=== PATIENT | female | born 1950 | race Caucasian/White ===

== ENCOUNTER → 2019-04-18 | Outpatient (CLI) | payer MEDICARE, OTHER, SELFPAY ==
--- NOTE | 2019-04-18 09:15 | RAD_ITS ---
STUDY: X-RAY CHEST REASON FOR EXAM: Female, 68 years old. No chest complaints TECHNIQUE: PA and lateral views of the chest. COMPARISON: 09/09/2014 FINDINGS: The lungs are clear and expanded. There is no demonstrated pleural abnormality. Normal size heart. Normal mediastinum and yaa. Normal visualized pulmonary arteries. Normal visualized aortic arch and descending thoracic aorta. Normal visualized thoracic spine. 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 There is no demonstrated abnormality of the visualized soft tissue structures of the upper abdomen. RAD/Chest PA and Lateral IMPRESSION: Normal x-ray examination of the chest. Electronically Signed: Logan Smith, at 10:17 EDT Tel , Service support ,
[2019-04-21 03:06] LABS: QNTFERON TB Mitogen Value > 10.00 IU/mL (.); QNTFERON TB Nil Value 0.79 IU/mL (.); QNTFERON TB1+ Ag Value 0.33 IU/mL (.); QNTFERON TB2+ Ag Value 0.37 IU/mL (.)
[2019-04-23 08:19] LABS: QNTIFERON TB Positive Criteria Negative (Negative)
== END | disposition home or self-care (01) ==
LOC: MTLAB 09:02
PROVIDERS: Family Provider Family Medicine; PCP Family Medicine; Referring Provider Internal Medicine Rheumatology; Visit Provider Internal Medicine Rheumatology
DX: M05.70 Rheumatoid arthritis with rheumatoid factor of unspecified site without organ or systems involvement (principal); Z79.899 Other long term (current) drug therapy; I10 Essential (primary) hypertension; M47.892 Other spondylosis, cervical region
CPT/HCPCS: 36415; 71046; 86480

== ENCOUNTER 2023-11-28 08:05 | Outpatient (CLI) | payer MEDICARE, SELFPAY ==
[2023-11-28 09:04] LABS: Anion Gap 7 (5-15); BUN 12 mg/dL (7-18); Calcium,Total 10.7 mg/dL (8.5-10.1); Chloride 106 mmol/L (98-107); EST Glomerular Filtration Rate 58 mL/min (>60); Est Glom Filt Rate - Afr Amer 70 mL/min (>60); Glucose 119 mg/dL (74-106); Potassium 3.2 mmol/L (3.5-5.1); Sodium Level 140 mmol/L (136-145)
[2023-11-28 09:05] LABS: Hematocrit 31.9 % (37-47); Hemoglobin 9.8 g/dL (12.0-15.0); Mean Corp Hgb Conc 30.7 g/dL (32-36); Mean Corpuscular Hgb 27.3 pg (27.0-32.0); Mean Corpuscular Volume 88.9 fL (81-99); Mean Platelet Vol. 11.7 fl (6.2-12.0); Platelet Count 142 K/mm3 (150-450); RBC Distribution Width CV 13.3 % (11.6-14.6); RBC Distribution Width SD 43.8 fl (35.1-43.9); Red Blood Count 3.59 M/mm3 (4.2-5.4); White Blood Count 4.2 K/mm3 (4.4-11.0)
[2023-11-28 09:15] LABS: Erythrocyte Sedimentation Rate 25 mm/hr (0-30)
[2023-11-28 10:13] LABS: Vancomycin, Trough Level 39.7 ug/mL (5.0-15.0)
== END 2023-11-28 08:06 | disposition home or self-care (01) ==
PROVIDERS: PCP Family Medicine; Referring Provider Internal Medicine Infectious Disease; Visit Provider Internal Medicine Infectious Disease
DX: L03.90 Cellulitis, unspecified (principal)
CPT/HCPCS: 36592; 80048; 80202; 85027; 85652; A4216

== ENCOUNTER 2023-11-30 14:49 | Outpatient (CLI) | payer MEDICARE, SELFPAY ==
[2023-11-30 15:34] LABS: Anion Gap 7 (5-15); BUN 15 mg/dL (7-18); BUN/Creat Ratio 12.6 RATIO (10-20); Calcium,Total 10.7 mg/dL (8.5-10.1); Chloride 106 mmol/L (98-107); Creatinine, Serum 1.19 mg/dL (0.55-1.02); EST Glomerular Filtration Rate 47 mL/min (>60); Est Glom Filt Rate - Afr Amer 57 mL/min (>60); Glucose 122 mg/dL (74-106); Potassium 3.1 mmol/L (3.5-5.1); Sodium Level 140 mmol/L (136-145)
[2023-11-30 16:05] LABS: Vancomycin, Random Level 31.2 ug/mL (0.0-15.0)
== END 2023-11-30 14:50 | disposition home or self-care (01) ==
LOC: MEDOUTP 14:49
PROVIDERS: PCP Family Medicine; Referring Provider Internal Medicine Infectious Disease; Visit Provider Internal Medicine Infectious Disease
DX: T84.53XA Infection and inflammatory reaction due to internal right knee prosthesis, initial encounter (principal)
CPT/HCPCS: 36592; 80048; 80202; A4216

== ENCOUNTER 2023-12-01 13:34 | Outpatient (CLI) | payer MEDICARE, SELFPAY ==
[2023-12-01 14:42] LABS: Vancomycin, Random Level 22.4 ug/mL (0.0-15.0)
[2023-12-01 14:49] LABS: Anion Gap 7 (5-15); BUN 16 mg/dL (7-18); BUN/Creat Ratio 13.8 RATIO (10-20); Calcium,Total 10.3 mg/dL (8.5-10.1); Chloride 106 mmol/L (98-107); Creatinine, Serum 1.16 mg/dL (0.55-1.02); EST Glomerular Filtration Rate 49 mL/min (>60); Est Glom Filt Rate - Afr Amer 59 mL/min (>60); Glucose 134 mg/dL (74-106); Sodium Level 139 mmol/L (136-145)
== END 2023-12-01 13:35 | disposition home or self-care (01) ==
LOC: MEDOUTP 13:34
PROVIDERS: PCP Family Medicine; Referring Provider Internal Medicine Infectious Disease; Visit Provider Internal Medicine Infectious Disease
DX: T84.53XA Infection and inflammatory reaction due to internal right knee prosthesis, initial encounter (principal); Z45.2 Encounter for adjustment and management of vascular access device
CPT/HCPCS: 36592; 80048; 80202; A4216

== ENCOUNTER 2023-12-05 08:00 | Outpatient (CLI) | payer MEDICARE, SELFPAY ==
[2023-12-05 08:43] LABS: Hematocrit 30.8 % (37-47); Hemoglobin 9.8 g/dL (12.0-15.0); Mean Corp Hgb Conc 31.8 g/dL (32-36); Mean Corpuscular Hgb 27.6 pg (27.0-32.0); Mean Corpuscular Volume 86.8 fL (81-99); Mean Platelet Vol. 11.4 fl (6.2-12.0); Platelet Count 141 K/mm3 (150-450); RBC Distribution Width CV 13.1 % (11.6-14.6); RBC Distribution Width SD 41.8 fl (35.1-43.9); Red Blood Count 3.55 M/mm3 (4.2-5.4); White Blood Count 5.4 K/mm3 (4.4-11.0)
[2023-12-05 08:53] LABS: Erythrocyte Sedimentation Rate 48 mm/hr (0-30)
[2023-12-05 09:03] LABS: Anion Gap 7 (5-15); BUN 11 mg/dL (7-18); BUN/Creat Ratio 11.2 RATIO (10-20); Calcium,Total 10.1 mg/dL (8.5-10.1); Chloride 102 mmol/L (98-107); Creatinine, Serum 0.99 mg/dL (0.55-1.02); EST Glomerular Filtration Rate 59 mL/min (>60); Est Glom Filt Rate - Afr Amer 71 mL/min (>60); Glucose 124 mg/dL (74-106); Potassium 2.8 mmol/L (3.5-5.1); Sodium Level 136 mmol/L (136-145)
[2023-12-05 09:04] LABS: Vancomycin, Trough Level 20.4 ug/mL (5.0-15.0)
== END 2023-12-05 08:01 | disposition home or self-care (01) ==
LOC: MEDOUTP 08:01
PROVIDERS: PCP Family Medicine; Referring Provider Internal Medicine Infectious Disease; Visit Provider Internal Medicine Infectious Disease
DX: T84.50XA Infection and inflammatory reaction due to unspecified internal joint prosthesis, initial encounter (principal)
CPT/HCPCS: 36592; 80048; 80202; 85027; 85652; A4216

== ENCOUNTER 2023-12-12 08:07 | Outpatient (CLI) | payer MEDICARE, SELFPAY ==
[2023-12-12 09:00] LABS: Erythrocyte Sedimentation Rate 54 mm/hr (0-30)
[2023-12-12 09:03] LABS: Hematocrit 30.3 % (37-47); Hemoglobin 9.6 g/dL (12.0-15.0); Mean Corp Hgb Conc 31.7 g/dL (32-36); Mean Corpuscular Volume 85.1 fL (81-99); Mean Platelet Vol. 11.5 fl (6.2-12.0); Platelet Count 164 K/mm3 (150-450); RBC Distribution Width CV 13.3 % (11.6-14.6); RBC Distribution Width SD 41.8 fl (35.1-43.9); Red Blood Count 3.56 M/mm3 (4.2-5.4); White Blood Count 4.2 K/mm3 (4.4-11.0)
[2023-12-12 09:17] LABS: Vancomycin, Trough Level 20.7 ug/mL (5.0-15.0)
[2023-12-12 09:41] LABS: Anion Gap 6 (5-15); BUN 12 mg/dL (7-18); BUN/Creat Ratio 12.5 RATIO (10-20); Calcium,Total 9.9 mg/dL (8.5-10.1); Chloride 102 mmol/L (98-107); Creatinine, Serum 0.96 mg/dL (0.55-1.02); EST Glomerular Filtration Rate 61 mL/min (>60); Est Glom Filt Rate - Afr Amer 73 mL/min (>60); Glucose 136 mg/dL (74-106); Potassium 2.8 mmol/L (3.5-5.1); Sodium Level 136 mmol/L (136-145)
== END 2023-12-12 08:08 | disposition home or self-care (01) ==
LOC: MEDOUTP 08:07
PROVIDERS: PCP Family Medicine; Referring Provider Internal Medicine Infectious Disease; Visit Provider Internal Medicine Infectious Disease
DX: T84.50XA Infection and inflammatory reaction due to unspecified internal joint prosthesis, initial encounter (principal); L03.90 Cellulitis, unspecified
CPT/HCPCS: 36592; 80048; 80202; 85027; 85652; A4216

== ENCOUNTER 2023-12-19 07:54 | Outpatient (CLI) | payer MEDICARE, SELFPAY ==
[2023-12-19 09:12] LABS: Hematocrit 30.1 % (37-47); Hemoglobin 9.4 g/dL (12.0-15.0); Mean Corp Hgb Conc 31.2 g/dL (32-36); Mean Corpuscular Hgb 26.8 pg (27.0-32.0); Mean Corpuscular Volume 85.8 fL (81-99); Platelet Count 166 K/mm3 (150-450); RBC Distribution Width CV 13.5 % (11.6-14.6); RBC Distribution Width SD 42.5 fl (35.1-43.9); Red Blood Count 3.51 M/mm3 (4.2-5.4); White Blood Count 4.5 K/mm3 (4.4-11.0)
[2023-12-19 09:18] LABS: Erythrocyte Sedimentation Rate 46 mm/hr (0-30)
[2023-12-19 09:29] LABS: Anion Gap 5 (5-15); BUN 12 mg/dL (7-18); BUN/Creat Ratio 12.6 RATIO (10-20); Calcium,Total 10.3 mg/dL (8.5-10.1); Chloride 104 mmol/L (98-107); Creatinine, Serum 0.95 mg/dL (0.55-1.02); EST Glomerular Filtration Rate 61 mL/min (>60); Est Glom Filt Rate - Afr Amer 74 mL/min (>60); Glucose 112 mg/dL (74-106); Potassium 3.3 mmol/L (3.5-5.1); Sodium Level 137 mmol/L (136-145)
[2023-12-19 09:32] LABS: Vancomycin, Trough Level 23.3 ug/mL (5.0-15.0)
== END 2023-12-19 07:55 | disposition home or self-care (01) ==
PROVIDERS: PCP Family Medicine; Referring Provider Internal Medicine Infectious Disease; Visit Provider Internal Medicine Infectious Disease
DX: T84.50XA Infection and inflammatory reaction due to unspecified internal joint prosthesis, initial encounter (principal)
CPT/HCPCS: 36592; 80048; 80202; 85027; 85652; A4216

== ENCOUNTER 2023-12-26 08:01 | Outpatient (CLI) | payer MEDICARE, SELFPAY ==
[2023-12-26 08:36] LABS: Hematocrit 29.5 % (37-47); Hemoglobin 9.2 g/dL (12.0-15.0); Mean Corp Hgb Conc 31.2 g/dL (32-36); Mean Corpuscular Hgb 26.9 pg (27.0-32.0); Mean Corpuscular Volume 86.3 fL (81-99); Mean Platelet Vol. 10.8 fl (6.2-12.0); Platelet Count 157 K/mm3 (150-450); RBC Distribution Width CV 14.1 % (11.6-14.6); RBC Distribution Width SD 43.8 fl (35.1-43.9); Red Blood Count 3.42 M/mm3 (4.2-5.4); White Blood Count 3.8 K/mm3 (4.4-11.0)
[2023-12-26 08:48] LABS: Anion Gap 8 (5-15); BUN 17 mg/dL (7-18); BUN/Creat Ratio 17.1 RATIO (10-20); Chloride 103 mmol/L (98-107); EST Glomerular Filtration Rate 58 mL/min (>60); Est Glom Filt Rate - Afr Amer 70 mL/min (>60); Glucose 139 mg/dL (74-106); Potassium 3.5 mmol/L (3.5-5.1); Sodium Level 139 mmol/L (136-145)
[2023-12-26 08:49] LABS: Vancomycin, Trough Level 26.1 ug/mL (5.0-15.0)
[2023-12-26 08:58] LABS: Erythrocyte Sedimentation Rate 35 mm/hr (0-30)
== END 2023-12-26 08:02 | disposition home or self-care (01) ==
LOC: MEDOUTP 08:01
PROVIDERS: PCP Family Medicine; Referring Provider Internal Medicine Infectious Disease; Visit Provider Internal Medicine Infectious Disease
DX: T84.50XA Infection and inflammatory reaction due to unspecified internal joint prosthesis, initial encounter (principal)
CPT/HCPCS: 36592; 80048; 80202; 85027; 85652; A4216

== ENCOUNTER 2024-01-02 07:53 | Outpatient (CLI) | payer MEDICARE, SELFPAY ==
[2024-01-02 08:30] LABS: Hematocrit 31.6 % (37-47); Hemoglobin 9.7 g/dL (12.0-15.0); Mean Corp Hgb Conc 30.7 g/dL (32-36); Mean Corpuscular Hgb 26.6 pg (27.0-32.0); Mean Corpuscular Volume 86.6 fL (81-99); Platelet Count 152 K/mm3 (150-450); RBC Distribution Width CV 14.3 % (11.6-14.6); RBC Distribution Width SD 45.2 fl (35.1-43.9); Red Blood Count 3.65 M/mm3 (4.2-5.4); White Blood Count 4.2 K/mm3 (4.4-11.0)
[2024-01-02 08:46] LABS: Anion Gap 3 (5-15); BUN 15 mg/dL (7-18); BUN/Creat Ratio 13.8 RATIO (10-20); Calcium,Total 10.2 mg/dL (8.5-10.1); Chloride 100 mmol/L (98-107); Creatinine, Serum 1.09 mg/dL (0.55-1.02); EST Glomerular Filtration Rate 52 mL/min (>60); Est Glom Filt Rate - Afr Amer 63 mL/min (>60); Glucose 154 mg/dL (74-106); Potassium 3.4 mmol/L (3.5-5.1); Sodium Level 136 mmol/L (136-145)
[2024-01-02 08:58] LABS: Vancomycin, Trough Level 25.3 ug/mL (5.0-15.0)
[2024-01-02 10:18] LABS: Erythrocyte Sedimentation Rate 44 mm/hr (0-30)
== END 2024-01-02 07:54 | disposition home or self-care (01) ==
LOC: MEDOUTP 07:53
PROVIDERS: PCP Family Medicine; Referring Provider Internal Medicine Infectious Disease; Visit Provider Internal Medicine Infectious Disease
DX: T84.50XA Infection and inflammatory reaction due to unspecified internal joint prosthesis, initial encounter (principal)
CPT/HCPCS: 36592; 80048; 80202; 85027; 85652; A4216

== ENCOUNTER 2024-01-05 10:14 | Outpatient (CLI) | payer MEDICARE, SELFPAY ==
[2024-01-05 10:56] VITALS: BP 159/70; PULSE 60; RESP 16; TEMP 36.6; O2SAT 98
== END 2024-01-05 10:15 | disposition home or self-care (01) ==
LOC: MEDOUTP 10:14
PROVIDERS: PCP Family Medicine; Referring Provider Internal Medicine Infectious Disease; Visit Provider Internal Medicine Infectious Disease
DX: T84.53XA Infection and inflammatory reaction due to internal right knee prosthesis, initial encounter (principal)

== ENCOUNTER 2024-12-13 13:00 | Outpatient (RCR) | payer MEDICARE, SELFPAY ==
[2024-11-22 13:25] VITALS: BP 133/58; PULSE 71; RESP 18; TEMP 36.2; BMI 27.3
--- NOTE | 2024-11-22 17:24 | PCM.WC.HP ---
History of Present Illness Date of Service: 11/22/24 Chief Complaint: Chronic R knee ulceration History of Wound: Therese Camarena is a very pleasant 73-year-old female who presents to the wound center today accompanied by her daughter for evaluation and management of a chronic right knee ulceration. 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 Unfortunately, this was complicated by infection and incisional site dehiscence in November 2023 and evolved into this persistent ulceration she has today. She reports initially she had a wound VAC for a while. She was told by her orthopedic surgeon that the options are to continue local care in an attempt to heal this or another surgery for hardware removal and replacement. Her orthopedic surgeon is Dr. Palacios; she reports she does not currently have regular follow-up with him. She notes that the replacement otherwise is functioning well for her, she is still able to move better than prior to surgery. She is weight-bearing and generally participating in regular activity; she does still receive PT as well. She is established with infectious disease Dr. Booth in [place] and sees him about monthly; she is on a regimen of Amoxicillin and Rifampin. The largest ulceration overlies her knee and the base is largely granular with some slough; she has 3 other small openings inferiorly with scant serous appearing drainage. There are 2 sutures protruding from the superior aspect of her large knee ulceration and there is one suture protruding from an inferior opening on the anterior proximal tibia; these sutures are in location and appearance consistent with tendon anchoring sutures. No visible hardware. She notes that most recently her wound care has consisted of applying raw honey to the wound and keeping it covered with gauze dressing. She reports little drainage. She denies any new erythema, edema, excess warmth, N/V, F/C. She and her daughter both feel that she has had slow but positive progress towards healing over the last couple months; though the new inferior openings are concerning to them. [facility] Medical History (Updated 11/23/24 @ 07:55 by BETH Reynoso) Impacted cerumen, left ear Acute maxillary sinusitis, unspecified Home Medications ?Medication ?Instructions ?Recorded ?Last Taken ?Type guaifenesin 600 mg tablet, 600 mg PO Q12H PRN congestion #14 11/02/21 Unknown Rx extended release 12 hr (Mucinex) tabs amoxicillin 875 mg tablet 875 mg PO BID 11/22/24 Unknown History arthritic tylenol 11/22/24 Unknown History aspirin 81 mg capsule 81 mg PO DAILY 11/22/24 Unknown History atenolol 25 mg tablet 25 mg PO DAILY 11/22/24 Unknown History hydrochlorothiazide 25 mg tablet 25 mg PO DAILY 11/22/24 Unknown History hydroxychloroquine 200 mg tablet 200 mg PO DAILY 11/22/24 Unknown History (Plaquenil) ibuprofen 600 mg tablet (IBU) 600 mg PO Q8H 11/22/24 Unknown History losartan 100 mg tablet (Cozaar) 100 mg PO DAILY 11/22/24 Unknown History potassium 20 mg chewable tablet mg PO 11/22/24 Unknown History rifampin 300 mg capsule 300 mg PO BID 11/22/24 Unknown History Allergy/AdvReac Type Severity Reaction Status Date / Time No Known Allergies Allergy Verified 11/22/24 13:55 Social History Smoking Status: Never smoker Vital Signs Vital Signs Vital Signs: 11/22/24 13:25 Temperature 97.2 F L Temperature Source Temporal Pulse Rate 71 Respiratory Rate 18 Blood Pressure 133/58 H Blood Pressure Mean 83 Blood Pressure Source Monitor Weight Weight: 159 lb 8.56 oz Body Mass Index (BMI) 27.3 Physical Exam Const alert, oriented x3 and no apparent distress General Appearance: cooperative and comfortable HEENT Head and Scalp: normocephalic and atraumatic Nose: external nose normal External Ear: external ears normal Eyes General Eye: normal appearance of both eyes Resp normal respiratory effort, no retractions and no use of accessory muscles Effort and Inspection: able to speak in complete sentences; Negative for labored, grunting or stridor Extremity Extremity Narrative: RLE 1+ edema Skin Wounds: wounds noted Wound Narrative: Large ulceration overlying the R knee; the base is largely granular with moderate slough; there is epibole from approximately 9 o'clock to 2 o'clock. At the superior aspect of the ulcer, there are two thick teal-colored suture tails protruding. There is no surrounding erythema, focal edema/fluctuance, purulent drainage, or foul odor. At the inferior aspect of this wound, it is clear there is relatively newly healed/epithelialized area. There are three small openings/ulcerations distal to the ulcer described above. One opening is just inferior on the proximal anterior tibia and also has a thick teal-colored suture tail protruding through it. The other two openings have no visible suture, red tissue at the base, about 0.5cm depth, and serous drainage. Neuro oriented x3 and moves all extremities Speech: speech normal Psych mental status grossly normal Appearance: grossly normal Attitude: calm and engaged Activity / Motor Behavior: appropriate eye contact Speech: normal speech Debridement Note Debridement Note Wound debrided: R knee Laterality: Right Type of Debridement: Excisional debridement Anesthesia Used: 4% Lidocaine Solution Depth: Down to and including healthy tissue and in the subcutaneous layer Percentage of wound debrided: 100 Instrument Used: 7mm curette Tissue Removed: slough Severity: Fat Layer Exposed Amount of bleeding with debridement: Mild Bleeding Controlled with: Compression and gauze Patient tolerated procedure: Patient tolerated procedure well Debridement Free Text: 36.40 sq cm area Post-Debridement Measurements and Additional Note: Post-Debridement Measurements/Treatment - Nurse 1 - General Ulcer Assessment Start: 11/22/24 13:25 Freq: Status: Active Protocol: .LOWTU Activity Type Activity Date Activity User E-sign Co-sign Detail Recorded Client Recorded Date Recorded By Document 11/22/24 13:25 DL [id number] 11/22/24 13:53 DL Edit Result 11/22/24 13:25 DL (1) [id number] 11/22/24 14:08 DL (1) Height => 5 ft 4 in Weight => 159 lb 8.56 oz Weight in Pounds => 159.5 lbs Weight Measurement Method => Estimated by => Patient Body Mass Index (BMI) => 27.3 BMI Classification => Overweight 11/22/24 13:25 WC - Today's Visit Information Type of service Initial Visit Arrival Mode Wheelchair Transfer Assistance Manual Transfer Assist (Other) x1 Patient Identification Verified (Name & Yes ) Height and Weight Height 5 ft 4 in Weight 159 lb 8.56 oz Weight in Pounds 159.5 lbs Weight Measurement Method Estimated by Patient Body Mass Index (BMI) 27.3 BMI Classification Overweight Vital Signs Temperature (97.8 F-99.1 F) 97.2 F L Temperature Source Temporal Pulse Rate (60-100) 71 Pulse Location Monitor Respiratory Rate (12-18) 18 Respiratory rate source Observation Blood Pressure (90/60-120/80) 133/58 H Blood Pressure Mean 83 Source Monitor Pain Scale: 0-10 Numeric Is Patient Pain Free? Yes Communication Assessment Preferred language Turkmen Able to Read Yes Able to Write Yes Right Hearing Abillity Normal Left Hearing Abillity Normal Visual Assistive Devices Glasses Teaching Assessment Preferences Verbal,Written, Demonstration Barriers to Learning None Readiness To Learn Good Willingness to Engage in Self Management Med Activies Readiness to Engage in Self Management Med Activities Anxiety Level Calm Cooperation Cooperative Perception Coherent Interest in Health Problem Asks Questions Education Importance Acknowledges Need Does Patient Smoke tobacco or other No substances Smoking Status Never smoker Functional Assessment Recent Decline in Ability to Perform Denies Any Declines Assistive Device With Patient N/A Culture/Sikhism/Cash Grain Farmer Cultural/Sikhism Needs that may affect No Treatment Plan Would you allow our hospital high speed printer operator to No meet you for the purpose of spiritual/ emotional support? Teaching: Wound Center *Welcome to the Wound Center -Person Taught Patient WC - Nurse 1 - General Ulcer Measurement Start: 11/22/24 13:25 Freq: Status: Active Protocol: Activity Type Activity Date Activity User E-sign Co-sign Detail Recorded Client Recorded Date Recorded By Document 11/22/24 13:25 DL [id number] 11/22/24 13:53 DL 11/22/24 13:25 Wound Center Nurse 1 #3 R Knee inf -Current Size (cm) - Length 0.3 -Current Size (cm) - Width 0.3 -Current Size (cm) - Depth 0.2 -Total Square Cm 0.09 -Photo Taken Yes -Exudate Amt Small -Exudate Type Serosanguineous -Wound Margin Distinct, Outline Attached -Granulation Amt None Present (0 %) -Necrosis Amt None Present (0 %) -Structure Exposed N/A -Texture (Ginger-wound Skin Appearance) Localized Edema ,Scarring -Moisture (Ginger-wound Skin Appearance) No Abnormality -Color (Ginger-wound Skin Appearance) No Abnormality -Temperature (Ginger-wound Skin No Abnormality Appearance) (Pt Warm) -Tenderness on Palpation (Ginger-wound No Skin Appearance) -Ulcer Cleansing Soap and Water -Foul Odor after Cleansing No -Anesthetic Used 4% Lidocaine Solution #2 R Knee Medial -Current Size (cm) - Length 0.5 -Current Size (cm) - Width 0.6 -Current Size (cm) - Depth 0.6 -Total Square Cm 0.30 -Photo Taken Yes -Exudate Amt Medium -Exudate Type Serosanguineous -Wound Margin Distinct, Outline Attached -Granulation Amt None Present (0 %) -Slough/Fibrin Yes -Necrosis Amt None Present (0 %) -Structure Exposed N/A -Texture (Ginger-wound Skin Appearance) Localized Edema ,Scarring -Moisture (Ginger-wound Skin Appearance) Weeping -Color (Ginger-wound Skin Appearance) No Abnormality -Temperature (Ginger-wound Skin No Abnormality Appearance) (Pt Warm) -Tenderness on Palpation (Ginger-wound No Skin Appearance) -Ulcer Cleansing Soap and Water -Foul Odor after Cleansing No -Anesthetic Used 4% Lidocaine Solution #1 R Knee -Current Size (cm) - Length 4.9 -Current Size (cm) - Width 7.3 -Current Size (cm) - Depth 0.2 -Total Square Cm 35.77 -Photo Taken Yes -Exudate Amt Medium -Exudate Type Serosanguineous -Wound Margin Distinct, Outline Attached -Granulation Amt Medium (34-66%) -Granulation Quality Red -Necrosis Amt Medium (34-66%) -Necrotic Tissue Type Adherent Slough -Structure Exposed N/A -Texture (Ginger-wound Skin Appearance) Localized Edema ,Scarring -Moisture (Ginger-wound Skin Appearance) No Abnormality -Color (Ginger-wound Skin Appearance) No Abnormality -Temperature (Ginger-wound Skin No Abnormality Appearance) (Pt Warm) -Ulcer Cleansing Soap and Water -Foul Odor after Cleansing No -Anesthetic Used 4% Lidocaine Solution Right Calf (cm) 33 Right Ankle (cm) 24.8 Left Calf (cm) 32.5 Left Ankle (cm) 22.5 WC - Nurse 2 - General Ulcer CM Notes Start: 11/22/24 13:25 Freq: Status: Active Protocol: Activity Type Activity Date Activity User E-sign Co-sign Detail Recorded Client Recorded Date Recorded By Document 11/22/24 14:07 [id number] 11/22/24 14:34 11/22/24 14:07 Wound Center Nurse 2 #4 R Peterson -Time 14:33 -Correct Patient Yes -Correct Side, Site, Position Yes -Correct Procedure Yes -Procedure Performed Yes -Type of Procedure Debridement -Clinical Debridement Subcutaneous -Tissue Removed Subcutaneous -Post Debridement (cm) - Length 0.3 -Post Debridement (cm) - Width 0.3 -Post Debridement (cm) - Depth 0.2 -Total Square (Post) (cm) 0.09 -Area of Debridement (cm) - Length 0.3 -Area of Debridement (cm) - Width 0.3 -Total Square (Area) (cm) 0.09 -Tunneling No -Undermining/Tunneling No -Circular Undermining No -Wound/Ulcer Outcome Not Healed -Ulcer Cleansing Rinsed/ Irrigated with Saline -Foul Odor after Cleansing No -Bioengineered Tissue No -Bleeding Controlled with Pressure -Treatment Response Procedure Tolerated Well -Debridement - Subq, 1st 20sq cm No #3 R Knee inf -Time 14:08 -Correct Patient Yes -Correct Side, Site, Position Yes -Correct Procedure Yes -Procedure Performed Yes -Type of Procedure Debridement -Clinical Debridement Subcutaneous -Tissue Removed Subcutaneous -Post Debridement (cm) - Length 0.3 -Post Debridement (cm) - Width 0.4 -Post Debridement (cm) - Depth 0.1 -Total Square (Post) (cm) 0.12 -Area of Debridement (cm) - Length 0.3 -Area of Debridement (cm) - Width 0.4 -Total Square (Area) (cm) 0.12 -Tunneling No -Undermining/Tunneling No -Circular Undermining No -Wound/Ulcer Outcome Not Healed -Ulcer Cleansing Rinsed/ Irrigated with Saline -Foul Odor after Cleansing No -Bioengineered Tissue No -Bleeding Controlled with Pressure -Treatment Response Procedure Tolerated Well -Debridement - Subq, 1st 20sq cm No #2 R Knee Medial -Time 14:08 -Correct Patient Yes -Correct Side, Site, Position Yes -Correct Procedure Yes -Procedure Performed Yes -Type of Procedure Debridement -Clinical Debridement Subcutaneous -Tissue Removed Subcutaneous -Post Debridement (cm) - Length 0.4 -Post Debridement (cm) - Width 0.4 -Post Debridement (cm) - Depth 0.7 -Total Square (Post) (cm) 0.16 -Area of Debridement (cm) - Length 0.4 -Area of Debridement (cm) - Width 0.4 -Total Square (Area) (cm) 0.16 -Tunneling No -Undermining/Tunneling Yes -Undermining/Tunneling Starts (O'clock 9 ) -Undermining/Tunneling Ends (O'clock) 2 -Maximum Distance (cm) 0.4 -Circular Undermining No -Wound/Ulcer Outcome Not Healed -Ulcer Cleansing Rinsed/ Irrigated with Saline -Foul Odor after Cleansing No -Bioengineered Tissue No -Bleeding Controlled with Pressure -Treatment Response Procedure Tolerated Well -Offloading No -Debridement - Subq, 1st 20sq cm No #1 R Knee -Time 14:08 -Correct Patient Yes -Correct Side, Site, Position Yes -Correct Procedure Yes -Procedure Performed Yes -Type of Procedure Debridement -Clinical Debridement Subcutaneous -Tissue Removed Subcutaneous -Post Debridement (cm) - Length 5.2 -Post Debridement (cm) - Width 7.0 -Post Debridement (cm) - Depth 0.4 -Total Square (Post) (cm) 36.40 -Area of Debridement (cm) - Length 5.2 -Area of Debridement (cm) - Width 7.0 -Total Square (Area) (cm) 36.40 -Tunneling No -Undermining/Tunneling No -Circular Undermining No -Wound/Ulcer Outcome Not Healed -Ulcer Cleansing Rinsed/ Irrigated with Saline -Foul Odor after Cleansing No -Bioengineered Tissue No -Bleeding Controlled with Pressure -Treatment Response Procedure Tolerated Well -Offloading No -Debridement - Subq, 1st 20sq cm Yes -Debridement, SubQ, ea addt'l 20sq cm 1 or part thereof Pain Scale: 0-10 Numeric Is Patient Pain Free? Yes WC - Nurse 3 - General Ulcer D/C NN Start: 11/22/24 13:25 Freq: Status: Active Protocol: Activity Type Activity Date Activity User E-sign Co-sign Detail Recorded Client Recorded Date Recorded By Document 11/22/24 15:02 DS [id number] 11/22/24 15:16 DS 11/22/24 15:02 Wound Care Center Nurse 3 #4 R Peterson -Ulcer Cleansing Rinsed/ Irrigated with Saline -Foul Odor after Cleansing No -Primary Dressing Applied Promogran Deborah Matter -Promogran Deborah Matter 1 #3 R Knee inf -Ulcer Cleansing Rinsed/ Irrigated with Saline -Primary Dressing Applied Promogran Deborah Matter -Promogran Deborah Matter 1 #2 R Knee Medial -Ulcer Cleansing Rinsed/ Irrigated with Saline -Foul Odor after Cleansing No -Primary Dressing Applied Promogran Deborah Matter -Promogran Deborah Matter 0 #1 R Knee -Ulcer Cleansing Rinsed/ Irrigated with Saline -Foul Odor after Cleansing No -Primary Dressing Applied Promogran Deborah Matter -Promogran Deborah Matter 0 RLE -Compression Wrap Kwame Wrap -Tubular Bandage Single Layer -Size of Tubigrip Used Size E -Size E ($) 1 Pain Scale: 0-10 Numeric Is Patient Pain Free? Yes WC - Visit Discharge Discharge Condition Stable Ambulatory Status Ambulatory, Wheelchair Transportation Private Auto Additional Wound Wound debrided: R peterson Laterality: Right Type of Debridement: Excisional debridement Anesthesia Used: 4% Lidocaine Solution Depth: in the subcutaneous layer Percentage of wound debrided: 100 Instrument Used: 7mm curette Tissue Removed: slough Severity: Fat Layer Exposed Amount of bleeding with debridement: None Patient tolerated procedure: Patient tolerated procedure well Additional Wound Wound debrided: R knee medial Laterality: Right Type of Debridement: Excisional debridement Anesthesia Used: 4% Lidocaine Solution Depth: Down to and including healthy tissue Percentage of wound debrided: 100 Instrument Used: 7mm curette Tissue Removed: slough Severity: Fat Layer Exposed Amount of bleeding with debridement: None Patient tolerated procedure: Patient tolerated procedure well Charges/Coding Visit Charges Office Visits / Consults: [id number] OV L4 New 45min Procedures Integumentary [id number]: [id number] Abigail subq tissue 20 sq cm/< (36.65 sq cm ) Assessment/Plan Assessment/Plan (1) Failed total right knee replacement: CODE(S): T84.012A - Broken internal right knee prosthesis, initial encounter (2) Infection of total right knee replacement: CODE(S): T84.53XA - Infection and inflammatory reaction due to internal right knee prosthesis, initial encounter (3) Dehiscence of surgical wound: CODE(S): T81.31XA - Disruption of external operation (surgical) wound, not elsewhere classified, initial encounter (4) Skin ulcer of knee with fat layer exposed: CODE(S): L97.802 - Non-pressure chronic ulcer of other part of unspecified lower leg with fat layer exposed QUALIFIERS: Laterality: right Qualified Code(s): L97.812 - Non-pressure chronic ulcer of other part of right lower leg with fat layer exposed (5) Ulcer of peterson with fat layer exposed: CODE(S): L97.802 - Non-pressure chronic ulcer of other part of unspecified lower leg with fat layer exposed QUALIFIERS: Laterality: right Qualified Code(s): L97.812 - Non-pressure chronic ulcer of other part of right lower leg with fat layer exposed PLAN: Plan She is already established with ID Dr. Booth who is managing her antibiotic regimen. Currently she is on Amoxicillin and Rifampin. Due to new openings, obtained wound culture. Will fax results to Dr. Booth's office when received. There are three visible sutures; I think these may be tendon anchoring sutures. I think it is unlikely that she will fully heal with these in place and exposure increases further infection risk; however, also do not want to risk the integrity/function of her replacement. I will reach out to her orthopedic surgeon to discuss and perhaps see if they wish to re-evaluate and remove these sutures as appropriate. For wound care: (1) Cleanse the area with antibacterial soap and water, pat gently to dry (2) Apply lightly moistened Deborah to the wound bed, ensuring to tuck this under the epibole superiorly and to pack into the inferior openings (3) Cover with dry gauze 4x4s and then wrap with Kerlix (4) Secure in place with KWAME wrap or light-compression Tubigrip (5) Change daily or more often as needed to keep clean and dry I advise elevation of her leg at rest. I think continued ambulation and participation in PT is necessary for her overall, but do advise avoidance of strenuous activity and overuse which will may further delay healing. Will plan for return to the office in 3 weeks, this works best for them given the distance she travels but they understand to call or return sooner with any concerns.
--- NOTE | 2024-11-23 09:59 | WC ---
PHOTO 11/22/24 RIGHT KNEE(I)
--- NOTE | 2024-11-23 10:00 | WC ---
PHOTO 11/22/24 RIGHT KNEE MID/INF
[2024-12-13 13:12] VITALS: BP 136/52; PULSE 76; RESP 18; TEMP 36.2; BMI 27.3
--- NOTE | 2024-12-13 14:06 | PN.PCM_ITS ---
History of Present Illness Date of Service: 12/13/24 Chief Complaint: Chronic R knee ulceration History of Wound: Therese Camarena is a very pleasant 73-year-old female who presents to the wound center today accompanied by her daughter for evaluation and management of a chronic right knee ulceration. 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 Unfortunately, this was complicated by infection and incisional site dehiscence in November 2023 and evolved into this persistent ulceration she has today. She reports initially she had a wound VAC for a while. She was told by her orthopedic surgeon that the options are to continue local care in an attempt to heal this or another surgery for hardware removal and replacement. Her orthopedic surgeon is Dr. Palacios; she reports she does not currently have regular follow-up with him. She notes that the replacement otherwise is functioning well for her, she is still able to move better than prior to surgery. She is weight-bearing and generally participating in regular activity; she does still receive PT as well. She is established with infectious disease Dr. Booth in [place] and sees him about monthly; she is on a regimen of Amoxicillin and Rifampin. The largest ulceration overlies her knee and the base is largely granular with some slough; she has 3 other small openings inferiorly with scant serous appearing drainage. There are 2 sutures protruding from the superior aspect of her large knee ulceration and there is one suture protruding from an inferior opening on the anterior proximal tibia; these sutures are in location and appearance consistent with tendon anchoring sutures. No visible hardware. She notes that most recently her wound care has consisted of applying raw honey to the wound and keeping it covered with gauze dressing. She reports little drainage. She denies any new erythema, edema, excess warmth, N/V, F/C. She and her daughter both feel that she has had slow but positive progress towards healing over the last couple months; though the new inferior openings are concerning to them. Subjective Subjective In the interval since her last visit, I did call and discuss her case with her orthopedic surgeon Dr. Sutton. I discussed with him the protruding sutures and that I think these are likely to further inhibit wound healing; though certainly removing would not guarantee healing. He advised that there were anchoring a mesh which is part of her tendon repair; he believes the mesh should be well- established at this point and thinks the sutures could be removed if necessary; he stated that he would do this as he is familiar with the location and wanted to determine if there would be disruption to the mesh. He also shared that it is his opinion that the replacement she be removed and redone; however, the patient has not been open to this in the past. She did go see Dr. Lesley roman today. He removed the visible protruding sutures and she says this went well. She will be following up with him in 3 months to reassess her progress here with us. Objective Data Objective Data Vital Signs: Vital Signs Temp Pulse Resp BP 97.2 F L 76 18 136/52 H 12/13/24 13:12 12/13/24 13:12 12/13/24 13:12 12/13/24 13:12 Weight: 159 lb 8.56 oz Body Mass Index (BMI) 27.3 Lab / Micro Data Micro: Microbiology 11/22/24 14:25 Wound - Knee Gram Stain - Final 11/22/24 14:25 Wound - Knee Wound Culture - Final Staphylococcus epidermidis 11/22/24 14:25 Wound - Knee Anaerobic Culture - Final No growth in 5 days. Charges/Coding Procedures Integumentary [id number]: [id number] Abigail subq tissue 20 sq cm/< (36.72 sq cm ) Physical Exam Const alert, oriented x3 and no apparent distress General Appearance: cooperative and comfortable HEENT Head and Scalp: normocephalic and atraumatic Nose: external nose normal External Ear: external ears normal Eyes General Eye: normal appearance of both eyes Resp normal respiratory effort, no retractions and no use of accessory muscles Effort and Inspection: able to speak in complete sentences; Negative for labored, grunting or stridor Extremity Extremity Narrative: RLE 1+ edema Skin Wounds: wounds noted Wound Narrative: Large ulceration overlying the R knee; the base is largely granular with moderate slough; there is epibole from approximately 9 o'clock to 2 o'clock. At the superior aspect of the ulcer, the teal colored sutures are now removed, no other visible sutures today. There is no surrounding erythema, focal edema/fluctuance, purulent drainage, or foul odor. At the inferior aspect of this wound, it is clear there is relatively newly healed/epithelialized area. Inferior opening on the proximal anterior tibia and the suture that was protruding here has now been removed. There is still an open peterson ulceration as well, small amount of murky drainage on my exam but there is granulation at the base. Prior medial opening is epithelialized but a bit boggy to palpation, no drainage. Neuro oriented x3 and moves all extremities Speech: speech normal Psych mental status grossly normal Appearance: grossly normal Attitude: calm and engaged Activity / Motor Behavior: appropriate eye contact Speech: normal speech Debridement Note Debridement Note Wound debrided: R knee Laterality: Right Type of Debridement: Excisional debridement Anesthesia Used: 4% Lidocaine Solution Depth: Down to and including healthy tissue and in the subcutaneous layer Percentage of wound debrided: 100 Instrument Used: 7mm curette Tissue Removed: slough Severity: Fat Layer Exposed Amount of bleeding with debridement: Mild Bleeding Controlled with: Compression and gauze Patient tolerated procedure: Patient tolerated procedure well Debridement Free Text: 36.40 sq cm area Post-Debridement Measurements and Additional Note: Post-Debridement Measurements/Treatment - Nurse 1 - General Ulcer Assessment Start: 11/22/24 13:25 Freq: Status: Active Protocol: MILIND Activity Type Activity Date Activity User E-sign Co-sign Detail Recorded Client Recorded Date Recorded By Document 11/22/24 13:25 DL [id number] 11/22/24 13:53 DL Edit Result 11/22/24 13:25 DL (1) [id number] 11/22/24 14:08 DL Document 12/13/24 13:12 DL [id number] 12/13/24 13:25 DL (1) Height => 5 ft 4 in Weight => 159 lb 8.56 oz Weight in Pounds => 159.5 lbs Weight Measurement Method => Estimated by => Patient Body Mass Index (BMI) => 27.3 BMI Classification => Overweight 11/22/24 12/13/24 13:25 13:12 - Today's Visit Information Type of service Initial Visit Follow-up Visit (Physician/SECURITY SYSTEMS MANAGER ) Arrival Mode Wheelchair Ambulatory,Cane Transfer Assistance Manual None Transfer Assist (Other) x1 Patient Identification Verified (Name & Yes Yes ) Patient Requires Transmission-Based No Precautions Height and Weight Height 5 ft 4 in Weight 159 lb 8.56 oz Weight in Pounds 159.5 lbs Weight Measurement Method Estimated by Patient Body Mass Index (BMI) 27.3 27.3 BMI Classification Overweight Overweight Vital Signs Temperature (97.8 F-99.1 F) 97.2 F L 97.2 F L Temperature Source Temporal Temporal Pulse Rate (60-100) 71 76 Pulse Location Monitor Monitor Respiratory Rate (12-18) 18 18 Respiratory rate source Observation Observation Blood Pressure (90/60-120/80) 133/58 H 136/52 H Blood Pressure Mean (mm Hg) 83 80 Source Monitor Monitor History Since Last Visit- (Skip if this is Patient's initial visit) Have you changed medications since your No last visit? Any new allergies or adverse reactions No Had a fall/change in ADL's that may No increase risk of falls Signs or symptoms of abuse and/or No neglect since last visit Have you been in the hospital since your No last visit? Has dressing in place as prescribed Yes Has compression in place as prescribed Yes Has offloadiing in place as prescribed Yes Experienced any changes in pain level or No management Pain Scale: 0-10 Numeric Is Patient Pain Free? Yes Yes Communication Assessment Preferred language Tanzanian Able to Read Yes Able to Write Yes Right Hearing Abillity Normal Left Hearing Abillity Normal Visual Assistive Devices Glasses Teaching Assessment Preferences Verbal,Written, Demonstration Barriers to Learning None Readiness To Learn Good Willingness to Engage in Self Management Med Activies Readiness to Engage in Self Management Med Activities Anxiety Level Calm Cooperation Cooperative Perception Coherent Interest in Health Problem Asks Questions Education Importance Acknowledges Need Does Patient Smoke tobacco or other No substances Smoking Status Never smoker Functional Assessment Recent Decline in Ability to Perform Denies Any Declines Assistive Device With Patient N/A Culture/Gnosticism/Ladle Repairer Cultural/Gnosticism Needs that may affect No Treatment Plan Would you allow our hospital labor and delivery nurse to No meet you for the purpose of spiritual/ emotional support? Teaching: Wound Center *Welcome to the Wound Center -Person Taught Patient WC - Nurse 1 - General Ulcer Measurement Start: 11/22/24 13:25 Freq: Status: Active Protocol: Activity Type Activity Date Activity User E-sign Co-sign Detail Recorded Client Recorded Date Recorded By Document 11/22/24 13:25 DL [id number] 11/22/24 13:53 DL Document 12/13/24 13:12 DL [id number] 12/13/24 13:25 DL 11/22/24 12/13/24 13:25 13:12 Wound Center Nurse 1 #4 R Peterson -Current Size (cm) - Length 0.8 -Current Size (cm) - Width 0.7 -Current Size (cm) - Depth 0.1 -Total Square Cm 0.56 -Photo Taken Yes -Exudate Amt Medium -Exudate Type Serosanguineous -Wound Margin Distinct, Outline Attached -Granulation Amt Large (67-100%) -Granulation Quality [place] -Necrosis Amt None Present (0 %) -Structure Exposed N/A -Texture (Ginger-wound Skin Appearance) Localized Edema ,Scarring -Moisture (Ginger-wound Skin Appearance) No Abnormality -Color (Ginger-wound Skin Appearance) Erythema -Temperature (Ginger-wound Skin No Abnormality Appearance) (Pt Warm) -Tenderness on Palpation (Ginger-wound No Skin Appearance) -Ulcer Cleansing Soap and Water -Foul Odor after Cleansing No -Anesthetic Used 5% Lidocaine Gel #3 R Knee inf -Current Size (cm) - Length 0.3 0.2 -Current Size (cm) - Width 0.3 0.2 -Current Size (cm) - Depth 0.2 0.2 -Total Square Cm 0.09 0.04 -Photo Taken Yes -Exudate Amt Small None Present -Exudate Type Serosanguineous -Wound Margin Distinct, Distinct, Outline Outline Attached Attached -Granulation Amt None Present (0 Small (1-33%) %) -Granulation Quality Red -Necrosis Amt None Present (0 None Present (0 %) %) -Structure Exposed N/A N/A -Texture (Ginger-wound Skin Appearance) Localized Edema Localized Edema ,Scarring ,Scarring -Moisture (Ginger-wound Skin Appearance) No Abnormality No Abnormality -Color (Ginger-wound Skin Appearance) No Abnormality No Abnormality -Temperature (Ginger-wound Skin No Abnormality No Abnormality Appearance) (Pt Warm) (Pt Warm) -Tenderness on Palpation (Ginger-wound No No Skin Appearance) -Ulcer Cleansing Soap and Water Soap and Water -Foul Odor after Cleansing No -Anesthetic Used 4% Lidocaine 5% Lidocaine Solution Gel,Cetacaine #2 R Knee Medial -Current Size (cm) - Length 0.5 0.1 -Current Size (cm) - Width 0.6 0.1 -Current Size (cm) - Depth 0.6 0.1 -Total Square Cm 0.30 0.01 -Photo Taken Yes -Exudate Amt Medium None Present -Exudate Type Serosanguineous -Wound Margin Distinct, Outline Attached -Granulation Amt None Present (0 Large (67-100%) %) -Granulation Quality [place] -Slough/Fibrin Yes -Necrosis Amt None Present (0 None Present (0 %) %) -Structure Exposed N/A N/A -Texture (Ginger-wound Skin Appearance) Localized Edema Scarring ,Scarring -Moisture (Ginger-wound Skin Appearance) Weeping Dry/Scaly -Color (Ginger-wound Skin Appearance) No Abnormality No Abnormality -Temperature (Ginger-wound Skin No Abnormality No Abnormality Appearance) (Pt Warm) (Pt Warm) -Tenderness on Palpation (Ginger-wound No No Skin Appearance) -Ulcer Cleansing Soap and Water Soap and Water -Foul Odor after Cleansing No No -Anesthetic Used 4% Lidocaine Solution #1 R Knee -Current Size (cm) - Length 4.9 4.8 -Current Size (cm) - Width 7.3 6.5 -Current Size (cm) - Depth 0.2 0.1 -Total Square Cm 35.77 31.20 -Photo Taken Yes Yes -Exudate Amt Medium Medium -Exudate Type Serosanguineous Serosanguineous -Wound Margin Distinct, Thickened & Outline Rolled Under Attached -Granulation Amt Medium (34-66%) Large (67-100%) -Granulation Quality Red [place],Red -Necrosis Amt Medium (34-66%) Small (1-33%) -Necrotic Tissue Type Adherent Slough Adherent Slough -Structure Exposed N/A N/A -Texture (Ginger-wound Skin Appearance) Localized Edema Scarring ,Scarring -Moisture (Ginger-wound Skin Appearance) No Abnormality No Abnormality -Color (Ginger-wound Skin Appearance) No Abnormality No Abnormality -Temperature (Ginger-wound Skin No Abnormality No Abnormality Appearance) (Pt Warm) (Pt Warm) -Ulcer Cleansing Soap and Water Soap and Water -Foul Odor after Cleansing No No -Anesthetic Used 4% Lidocaine 4% Lidocaine Solution Solution Right Calf (cm) 33 Right Ankle (cm) 24.8 Left Calf (cm) 32.5 Left Ankle (cm) 22.5 WC - Nurse 2 - General Ulcer CM Notes Start: 11/22/24 13:25 Freq: Status: Active Protocol: Activity Type Activity Date Activity User E-sign Co-sign Detail Recorded Client Recorded Date Recorded By Document 11/22/24 14:07 [id number] 11/22/24 14:34 GM Document 12/13/24 13:28 [facility] [id number] 12/13/24 13:46 BMF 11/22/24 12/13/24 14:07 13:28 Wound Center Nurse 2 #4 R Peterson -Time 14:33 13:33 -Correct Patient Yes Yes -Correct Side, Site, Position Yes Yes -Correct Procedure Yes Yes -Procedure Performed Yes Yes -Type of Procedure Debridement Debridement -Clinical Debridement Subcutaneous Subcutaneous -Tissue Removed Subcutaneous Subcutaneous -Post Debridement (cm) - Length 0.3 0.6 -Post Debridement (cm) - Width 0.3 0.5 -Post Debridement (cm) - Depth 0.2 0.4 -Total Square (Post) (cm) 0.09 0.30 -Area of Debridement (cm) - Length 0.3 0.6 -Area of Debridement (cm) - Width 0.3 0.5 -Total Square (Area) (cm) 0.09 0.30 -Tunneling No No -Undermining/Tunneling No No -Circular Undermining No No -Wound/Ulcer Outcome Not Healed Not Healed -Ulcer Cleansing Rinsed/ Rinsed/ Irrigated with Irrigated with Saline Saline -Foul Odor after Cleansing No No -Bioengineered Tissue No No -Bleeding Controlled with Pressure Pressure -Treatment Response Procedure Procedure Tolerated Well Tolerated Well -Debridement - Subq, 1st 20sq cm No No #3 R Knee inf -Time 14:08 13:33 -Correct Patient Yes Yes -Correct Side, Site, Position Yes Yes -Correct Procedure Yes Yes -Procedure Performed Yes Yes -Type of Procedure Debridement Debridement -Clinical Debridement Subcutaneous Subcutaneous -Tissue Removed Subcutaneous Subcutaneous -Post Debridement (cm) - Length 0.3 0.2 -Post Debridement (cm) - Width 0.4 0.2 -Post Debridement (cm) - Depth 0.1 0.2 -Total Square (Post) (cm) 0.12 0.04 -Area of Debridement (cm) - Length 0.3 0.2 -Area of Debridement (cm) - Width 0.4 0.2 -Total Square (Area) (cm) 0.12 0.04 -Tunneling No No -Undermining/Tunneling No No -Circular Undermining No No -Wound/Ulcer Outcome Not Healed Not Healed -Ulcer Cleansing Rinsed/ Rinsed/ Irrigated with Irrigated with Saline Saline -Foul Odor after Cleansing No No -Bioengineered Tissue No No -Bleeding Controlled with Pressure Pressure -Treatment Response Procedure Procedure Tolerated Well Tolerated Well -Debridement - Subq, 1st 20sq cm No Yes #2 R Knee Medial -Time 14: 13:34 -Correct Patient Yes -Correct Side, Site, Position Yes -Correct Procedure Yes -Procedure Performed Yes No -Type of Procedure Debridement -Clinical Debridement Subcutaneous -Tissue Removed Subcutaneous -Post Debridement (cm) - Length 0.4 0.1 -Post Debridement (cm) - Width 0.4 0.1 -Post Debridement (cm) - Depth 0.7 0.1 -Total Square (Post) (cm) 0.16 0.01 -Area of Debridement (cm) - Length 0.4 0.1 -Area of Debridement (cm) - Width 0.4 0.1 -Total Square (Area) (cm) 0.16 0.01 -Tunneling No No -Undermining/Tunneling Yes No -Undermining/Tunneling Starts (O'clock 9 ) -Undermining/Tunneling Ends (O'clock) 2 -Maximum Distance (cm) 0.4 -Circular Undermining No No -Wound/Ulcer Outcome Not Healed Not Healed -Ulcer Cleansing Rinsed/ Irrigated with Saline -Foul Odor after Cleansing No -Bioengineered Tissue No -Bleeding Controlled with Pressure NA -Treatment Response Procedure Tolerated Well -Offloading No -Debridement - Subq, 1st 20sq cm No #1 R Knee -Time 14: 13:34 -Correct Patient Yes Yes -Correct Side, Site, Position Yes Yes -Correct Procedure Yes Yes -Procedure Performed Yes Yes -Type of Procedure Debridement Debridement -Clinical Debridement Subcutaneous Subcutaneous -Tissue Removed Subcutaneous Subcutaneous -Post Debridement (cm) - Length 5.2 5.1 -Post Debridement (cm) - Width 7.0 7.2 -Post Debridement (cm) - Depth 0.4 0.3 -Total Square (Post) (cm) 36.40 36.72 -Area of Debridement (cm) - Length 5.2 5.1 -Area of Debridement (cm) - Width 7.0 7.2 -Total Square (Area) (cm) 36.40 36.72 -Tunneling No No -Undermining/Tunneling No No -Circular Undermining No No -Wound/Ulcer Outcome Not Healed Not Healed -Ulcer Cleansing Rinsed/ Rinsed/ Irrigated with Irrigated with Saline Saline -Foul Odor after Cleansing No No -Bioengineered Tissue No No -Bleeding Controlled with Pressure Pressure -Treatment Response Procedure Procedure Tolerated Well Tolerated Well -Offloading No -Debridement - Subq, 1st 20sq cm Yes No -Debridement, SubQ, ea addt'l 20sq cm 1 or part thereof Pain Scale: 0-10 Numeric Is Patient Pain Free? Yes Yes WC - Nurse 3 - General Ulcer D/C NN Start: 11/22/24 13:25 Freq: Status: Active Protocol: Activity Type Activity Date Activity User E-sign Co-sign Detail Recorded Client Recorded Date Recorded By Document 11/22/24 15:02 DS [id number] 11/22/24 15:16 DS Document 12/13/24 13:50 KW [id number] 12/13/24 13:52 KW 11/22/24 12/13/24 15:02 13:50 Wound Care Center Nurse 3 #4 R Peterson -Ulcer Cleansing Rinsed/ Irrigated with Saline -Foul Odor after Cleansing No -Primary Dressing Applied Promogran Promogran Kleber Matter Kleber Matter -Primary Dressing Covered/Secured with Dry Gauze -Promogran Kleber Matter 1 1 #3 R Knee inf -Ulcer Cleansing Rinsed/ Irrigated with Saline -Primary Dressing Applied Promogran Kleber Matter -Other Dressing kleber -Primary Dressing Covered/Secured with Dry Gauze -Promogran Kleber Matter 1 #2 R Knee Medial -Ulcer Cleansing Rinsed/ Irrigated with Saline -Foul Odor after Cleansing No -Primary Dressing Applied Promogran Kleber Matter -Other Dressing kleber -Primary Dressing Covered/Secured with Dry Gauze -Promogran Kleber Matter 0 #1 R Knee -Ulcer Cleansing Rinsed/ Irrigated with Saline -Foul Odor after Cleansing No -Primary Dressing Applied Promogran Promogran Kleber Matter Kleber Matter -Primary Dressing Covered/Secured with Dry Gauze & Roll Gauze, Secured with Tape -Promogran Kleebr Matter 0 1 LLE -Tubular Bandage Single Layer -Size of Tubigrip Used Size E -Size E ($) 1 RLE -Compression Wrap Kwame Wrap -Tubular Bandage Single Layer Single Layer -Size of Tubigrip Used Size E Size E -Size E ($) 1 1 Pain Scale: 0-10 Numeric Is Patient Pain Free? Yes Yes WC - Visit Discharge Discharge Condition Stable Stable Ambulatory Status Ambulatory, Wheelchair Transportation Private Auto Private Auto Medication Reconcilliation completed & No provided to patient/care provider Clinical Summary of Care Provided Yes Additional Wound Wound debrided: R peterson Laterality: Right Type of Debridement: Excisional debridement Anesthesia Used: 4% Lidocaine Solution Depth: in the subcutaneous layer Percentage of wound debrided: 100 Instrument Used: 7mm curette Tissue Removed: slough Severity: Fat Layer Exposed Amount of bleeding with debridement: None Patient tolerated procedure: Patient tolerated procedure well Additional Wound Wound debrided: R knee medial Laterality: Right Type of Debridement: Excisional debridement Anesthesia Used: 4% Lidocaine Solution Depth: Down to and including healthy tissue Percentage of wound debrided: 100 Instrument Used: 7mm curette Tissue Removed: slough Severity: Fat Layer Exposed Amount of bleeding with debridement: None Patient tolerated procedure: Patient tolerated procedure well Assessment/Plan Assessment/Plan (1) Failed total right knee replacement: CODE(S): T84.012A - Broken internal right knee prosthesis, initial enco unter (2) Infection of total right knee replacement: CODE(S): T84.53XA - Infection and inflammatory reaction due to internal right knee prosthesis, initial encounter (3) Dehiscence of surgical wound: CODE(S): T81.31XA - Disruption of external operation (surgical) wound, not elsewhere classified, initial encounter (4) Skin ulcer of knee with fat layer exposed: CODE(S): L97.802 - Non-pressure chronic ulcer of other part of unspecified lower leg with fat layer exposed QUALIFIERS: Laterality: right Qualified Code(s): L97.812 - Non- pressure chronic ulcer of other part of right lower leg with fat layer exposed (5) Ulcer of peterson with fat layer exposed: CODE(S): L97.802 - Non-pressure chronic ulcer of other part of unspecified lower leg with fat layer exposed QUALIFIERS: Laterality: right Qualified Code(s): L97.812 - Non- pressure chronic ulcer of other part of right lower leg with fat layer exposed PLAN: Plan She is already established with ID Dr. Booth who is managing her antibiotic regimen. Currently she is on Amoxicillin and Rifampin. Wound culture grew staph epidermidis only which is likely skin contaminant, this was forwarded to Dr. Booth. She did have follow-up with Dr. Sutton and he did remove the protruding sutures. Per my discussion with him, he does think she needs to have replacement removed; however, per patient's preference will continue with wound care efforts. He will have her return in 3 months to reassess. He states OK for me to remove any further sutures which may protrude. These were anchoring a mesh as part of her prior tendon repair; the mesh is not visible which is reassuring but will monitor for this. For wound care: (1) Cleanse the area with antibacterial soap and water, pat gently to dry (2) Apply lightly moistened Kleber to the wound bed, ensuring to tuck this under the epibole superiorly and to pack into the inferior openings (3) Cover with dry gauze 4x4s and then wrap with Kerlix (4) Secure in place with KWAME wrap or light-compression Tubigrip (5) Change daily or more often as needed to keep clean and dry I advise elevation of her leg at rest. I think continued ambulation and participation in PT is necessary for her overall, but do advise avoidance of strenuous activity and overuse which will may further delay healing. At next appointment, will plan for local anesthetic so I can sharply debride the areas of epibole at the superior aspect of the wound. Will plan for return to the office in 3 weeks, this works best for them given the distance she travels but they understand to call or return sooner with any concerns.
== END 2024-12-17 23:59 | disposition home or self-care (01) ==
LOC: WC 13:00
PROVIDERS: PCP Family Medicine; Referring Provider Family Medicine; Visit Provider Physician Assistant
DX: L97.812 Non-pressure chronic ulcer of other part of right lower leg with fat layer exposed (principal); T84.012A Broken internal right knee prosthesis, initial encounter; T84.53XA Infection and inflammatory reaction due to internal right knee prosthesis, initial encounter; T81.31XA Disruption of external operation (surgical) wound, not elsewhere classified, initial encounter; Z96.651 Presence of right artificial knee joint; Z79.82 Long term (current) use of aspirin; Z79.899 Other long term (current) drug therapy
CPT/HCPCS: 11042; 11045; 87070; 87075; 87077; 87186; 87205; 99213; G0463

== ENCOUNTER 2025-01-03 13:07 | Outpatient (RCR) | payer MEDICARE, SELFPAY ==
[2024-12-18 00:36] VITALS: BP 136/52; PULSE 76; RESP 18; TEMP 36.2; BMI 27.3
[2025-01-03 13:20] VITALS: BP 146/75; PULSE 79; RESP 16; TEMP 36.4; BMI 27.3
--- NOTE | 2025-01-03 15:35 | PCM.WC.PN ---
History of Present Illness Date of Service: 01/03/25 Chief Complaint: Chronic R knee ulceration History of Wound: Therese Camarena is a very pleasant 73-year-old female who presents to the wound center today accompanied by her daughter for evaluation and management of a chronic right knee ulceration. 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 Unfortunately, this was complicated by infection and incisional site dehiscence in November 2023 and evolved into this persistent ulceration she has today. She reports initially she had a wound VAC for a while. She was told by her orthopedic surgeon that the options are to continue local care in an attempt to heal this or another surgery for hardware removal and replacement. Her orthopedic surgeon is Dr. Palacios; she reports she does not currently have regular follow-up with him. She notes that the replacement otherwise is functioning well for her, she is still able to move better than prior to surgery. She is weight-bearing and generally participating in regular activity; she does still receive PT as well. She is established with infectious disease Dr. Booth in [place] and sees him about monthly; she is on a regimen of Amoxicillin and Rifampin. The largest ulceration overlies her knee and the base is largely granular with some slough; she has 3 other small openings inferiorly with scant serous appearing drainage. There are 2 sutures protruding from the superior aspect of her large knee ulceration and there is one suture protruding from an inferior opening on the anterior proximal tibia; these sutures are in location and appearance consistent with tendon anchoring sutures. No visible hardware. She notes that most recently her wound care has consisted of applying raw honey to the wound and keeping it covered with gauze dressing. She reports little drainage. She denies any new erythema, edema, excess warmth, N/V, F/C. She and her daughter both feel that she has had slow but positive progress towards healing over the last couple months; though the new inferior openings are concerning to them. Subjective Subjective Therese returns today for evaluation of her R knee wounds. Unfortunately, a spot has opened back up at her medial proximal skin and is having significant drainage. I am able to express a lot of opaque yellow/white fluid from this area with palpation/massage; there is significant tracking toward the knee/tibia. She is on amoxicillin, doxycycline, and rifampin as per ID (doxycycline was added after last cultures showed staph epidermidis). Objective Data Objective Data Vital Signs: Vital Signs Temp Pulse Resp BP O2 Del Method 97.6 F L 79 16 146/75 H Room Air 01/03/25 13:20 01/03/25 13:20 01/03/25 13:20 01/03/25 13:20 01/03/25 13:20 Oxygen Delivery Method Room Air Weight: 159 lb 8.56 oz Body Mass Index (BMI) 27.3 Physical Exam Const alert, oriented x3 and no apparent distress General Appearance: cooperative and comfortable HEENT Head and Scalp: normocephalic and atraumatic Nose: external nose normal External Ear: external ears normal Eyes General Eye: normal appearance of both eyes Resp normal respiratory effort, no retractions and no use of accessory muscles Effort and Inspection: able to speak in complete sentences; Negative for labored, grunting or stridor Extremity Extremity Narrative: RLE 1+ edema Skin Wounds: wounds noted Wound Narrative: Large ulceration overlying the R knee; the base is largely granular with moderate slough; there is epibole from approximately 9 o'clock to 2 o'clock. At the superior aspect of the ulcer, the teal colored sutures are now removed, no other visible sutures today. There is no surrounding erythema, focal edema/fluctuance, purulent drainage, or foul odor. At the inferior aspect of this wound, it is clear there is relatively newly healed/epithelialized area. Inferior opening on the proximal anterior tibia and the suture that was protruding here has now been removed. There is still an open peterson ulceration as well, small amount of murky drainage on my exam but there is granulation at the base. Medial proximal peterson wound is open again and draining significantly, this probes about 2.5 cm medially; it is well draining and opening is large enough to pack; no defined area of fluctuance/induration Neuro oriented x3 and moves all extremities Speech: speech normal Psych mental status grossly normal Appearance: grossly normal Attitude: calm and engaged Activity / Motor Behavior: appropriate eye contact Speech: normal speech Debridement Note Debridement Note Wound debrided: R knee Laterality: Right Type of Debridement: Excisional debridement Anesthesia Used: 4% Lidocaine Solution Depth: Down to and including healthy tissue and in the subcutaneous layer Percentage of wound debrided: 100 Instrument Used: 7mm curette Tissue Removed: slough Severity: Fat Layer Exposed Amount of bleeding with debridement: Mild Bleeding Controlled with: Compression and gauze Patient tolerated procedure: Patient tolerated procedure well Debridement Free Text: 36.40 sq cm area Post-Debridement Measurements and Additional Note: Post-Debridement Measurements/Treatment - Nurse 1 - General Ulcer Assessment Start: 01/03/25 13:20 Freq: Status: Active Protocol: MILIND Activity Type Activity Date Activity User E-sign Co-sign Detail Recorded Client Recorded Date Recorded By Document 01/03/25 13:20 DS [id number] 01/03/25 13:23 DS 01/03/25 13:20 WC - Today's Visit Information Type of service Follow-up Visit (Physician/[employer] ) Arrival Mode Ambulatory, Walker Accompanied by family Patient Identification Verified (Name & Yes ) Patient Requires Transmission-Based No Precautions Safety Precautions Fall Prevention Height and Weight Body Mass Index (BMI) 27.3 BMI Classification Overweight Vital Signs Temperature (97.8 F-99.1 F) 97.6 F L Temperature Source Temporal Pulse Rate (60-100) 79 Pulse Location Monitor Respiratory Rate (12-18) 16 Respiratory rate source Observation Oxygen Delivery Method Room Air Blood Pressure (90/60-120/80) 146/75 H Blood Pressure Mean (mm Hg) 98 Source Monitor Position Sitting Blood Pressure Location Right Arm History Since Last Visit- (Skip if this is Patient's initial visit) Have you changed medications since your No last visit? Any new allergies or adverse reactions No Had a fall/change in ADL's that may No increase risk of falls Signs or symptoms of abuse and/or No neglect since last visit Have you been in the hospital since your No last visit? Has dressing in place as prescribed Yes Has compression in place as prescribed Yes Has offloadiing in place as prescribed N/A Experienced any changes in pain level or No management Left Footwear Regular Shoe Right Footwear Regular Shoe Pain Scale: 0-10 Numeric Is Patient Pain Free? Yes - Nurse 1 - General Ulcer Measurement Start: 01/03/25 13:20 Freq: Status: Active Protocol: Activity Type Activity Date Activity User E-sign Co-sign Detail Recorded Client Recorded Date Recorded By Document 01/03/25 13:23 DS [id number] 01/03/25 13:47 DS 01/03/25 13:23 Wound Center Nurse 1 #4 R Peterson -Current Size (cm) - Length 0.1 -Current Size (cm) - Width 0.1 -Current Size (cm) - Depth 0.1 -Total Square Cm 0.01 -Photo Taken No -Tunneling No -Undermining/Tunneling No -Circular Undermining No -Exudate Amt None Present -Wound Margin Distinct, Outline Attached -Texture (Ginger-wound Skin Appearance) Assessed -Moisture (Ginger-wound Skin Appearance) Assessed -Color (Ginger-wound Skin Appearance) Assessed -Temperature (Ginger-wound Skin No Abnormality Appearance) (Pt Warm) -Tenderness on Palpation (Ginger-wound No Skin Appearance) -Ulcer Cleansing Soap and Water -Foul Odor after Cleansing No -Anesthetic Used 5% Lidocaine Gel #3 R Knee inf -Current Size (cm) - Length 0.1 -Current Size (cm) - Width 0.1 -Current Size (cm) - Depth 0.1 -Total Square Cm 0.01 -Photo Taken No -Tunneling No -Undermining/Tunneling No -Circular Undermining No -Exudate Amt Small -Exudate Type Serosanguineous -Wound Margin Distinct, Outline Attached -Texture (Ginger-wound Skin Appearance) Assessed -Moisture (Ginger-wound Skin Appearance) Assessed -Color (Ginger-wound Skin Appearance) Assessed -Temperature (Ginger-wound Skin No Abnormality Appearance) (Pt Warm) -Ulcer Cleansing Soap and Water -Foul Odor after Cleansing No -Anesthetic Used 5% Lidocaine Gel #2 R Knee Medial -Current Size (cm) - Length 0.6 -Current Size (cm) - Width 0.7 -Current Size (cm) - Depth 0.1 -Total Square Cm 0.42 -Date of Last Picture (Recall this 01/03/25 field) -Photo Taken Yes -Tunneling No -Undermining/Tunneling No -Circular Undermining No -Exudate Amt Medium -Exudate Type Serosanguineous -Wound Margin Distinct, Outline Attached -Granulation Amt Medium (34-66%) -Granulation Quality [place] -Necrosis Amt Medium (34-66%) -Necrotic Tissue Type Adherent Slough -Texture (Ginger-wound Skin Appearance) Assessed -Moisture (Ginger-wound Skin Appearance) Assessed -Color (Ginger-wound Skin Appearance) Assessed -Temperature (Ginger-wound Skin No Abnormality Appearance) (Pt Warm) -Tenderness on Palpation (Ginger-wound No Skin Appearance) -Ulcer Cleansing Soap and Water -Foul Odor after Cleansing No -Anesthetic Used 5% Lidocaine Gel #1 R Knee -Current Size (cm) - Length 4.5 -Current Size (cm) - Width 6.2 -Current Size (cm) - Depth 0.1 -Total Square Cm 27.90 -Photo Taken No -Tunneling No -Undermining/Tunneling No -Circular Undermining No -Exudate Amt Medium -Exudate Type Yellow/Green -Wound Margin Distinct, Outline Attached -Granulation Amt Medium (34-66%) -Granulation Quality [place] -Necrosis Amt Medium (34-66%) -Necrotic Tissue Type Adherent Slough -Texture (Ginger-wound Skin Appearance) Assessed -Moisture (Ginger-wound Skin Appearance) Assessed -Color (Ginger-wound Skin Appearance) Assessed -Temperature (Ginger-wound Skin No Abnormality Appearance) (Pt Warm) -Tenderness on Palpation (Ginger-wound No Skin Appearance) -Ulcer Cleansing Soap and Water -Foul Odor after Cleansing No -Anesthetic Used 5% Lidocaine Gel Lower Limb Edema Present Yes Right Calf (cm) 32 Right Ankle (cm) 25 WC - Nurse 2 - General Ulcer CM Notes Start: 01/03/25 13:20 Freq: Status: Active Protocol: Activity Type Activity Date Activity User E-sign Co-sign Detail Recorded Client Recorded Date Recorded By Document 01/03/25 13:53 [id number] 01/03/25 14:16 GM 01/03/25 13:53 Wound Center Nurse 2 #4 R Peterson -Time 13:54 -Correct Patient Yes -Correct Side, Site, Position Yes -Correct Procedure No -Procedure Performed No -Post Debridement (cm) - Length 0.2 -Post Debridement (cm) - Width 0.2 -Post Debridement (cm) - Depth 0.9 -Total Square (Post) (cm) 0.04 -Area of Debridement (cm) - Length 0.2 -Area of Debridement (cm) - Width 0.2 -Total Square (Area) (cm) 0.04 -Tunneling No -Undermining/Tunneling No -Circular Undermining No -Wound/Ulcer Outcome Not Healed -Foul Odor after Cleansing No -Bioengineered Tissue No #3 R Knee inf -Time 13:54 -Correct Patient Yes -Correct Side, Site, Position Yes -Correct Procedure No -Procedure Performed No -Post Debridement (cm) - Length 0.2 -Post Debridement (cm) - Width 0.2 -Post Debridement (cm) - Depth 1.5 -Total Square (Post) (cm) 0.04 -Area of Debridement (cm) - Length 0.2 -Area of Debridement (cm) - Width 0.2 -Total Square (Area) (cm) 0.04 -Tunneling No -Undermining/Tunneling No -Circular Undermining No -Wound/Ulcer Outcome Not Healed -Ulcer Cleansing Rinsed/ Irrigated with Saline -Foul Odor after Cleansing No -Bioengineered Tissue No #2 R Knee Medial -Time 13:55 -Correct Patient Yes -Correct Side, Site, Position Yes -Correct Procedure Yes -Procedure Performed Yes -Type of Procedure Debridement -Clinical Debridement Subcutaneous -Tissue Removed Subcutaneous -Post Debridement (cm) - Length 1.0 -Post Debridement (cm) - Width 1.0 -Post Debridement (cm) - Depth 1.0 -Total Square (Post) (cm) 1.00 -Area of Debridement (cm) - Length 1.0 -Area of Debridement (cm) - Width 1.0 -Total Square (Area) (cm) 1.00 -Tunneling Yes -Tunneling Position (O'clock) 9 -Tunneling Distance (cm) 2.5 -Undermining/Tunneling No -Circular Undermining No -Wound/Ulcer Outcome Not Healed -Ulcer Cleansing Rinsed/ Irrigated with Saline -Foul Odor after Cleansing No -Bioengineered Tissue No -Bleeding Controlled with Pressure -Treatment Response Procedure Tolerated Well -Offloading No -Debridement - Subq, 1st 20sq cm Yes -Debridement, SubQ, ea addt'l 20sq cm 1 or part thereof #1 R Knee -Time 13:55 -Correct Patient Yes -Correct Side, Site, Position Yes -Correct Procedure Yes -Procedure Performed Yes -Type of Procedure Debridement -Clinical Debridement Subcutaneous -Tissue Removed Subcutaneous -Post Debridement (cm) - Length 4.5 -Post Debridement (cm) - Width 6.0 -Post Debridement (cm) - Depth 0.3 -Total Square (Post) (cm) 27.00 -Area of Debridement (cm) - Length 4.5 -Area of Debridement (cm) - Width 6.0 -Total Square (Area) (cm) 27.00 -Tunneling No -Undermining/Tunneling No -Circular Undermining No -Wound/Ulcer Outcome Not Healed -Ulcer Cleansing Rinsed/ Irrigated with Saline -Foul Odor after Cleansing No -Bioengineered Tissue No -Bleeding Controlled with Pressure -Treatment Response Procedure Tolerated Well -Debridement - Subq, 1st 20sq cm No Pain Scale: 0-10 Numeric Is Patient Pain Free? Yes - Nurse 3 - General Ulcer D/C NN Start: 01/03/25 13:20 Freq: Status: Active Protocol: Activity Type Activity Date Activity User E-sign Co-sign Detail Recorded Client Recorded Date Recorded By Document 01/03/25 14:30 [facility] [id number] 01/03/25 14:32 [facility] 01/03/25 14:30 Wound Care Center Nurse 3 #4 R Peterson -Ulcer Cleansing Rinsed/ Irrigated with Saline -Foul Odor after Cleansing No -Primary Dressing Applied Promogran Deborah Matter -Primary Dressing Covered/Secured with Dry Gauze, Secured with Tape -Other Covering drsg per dl materials inspector -Promogran Deborah Matter 0 #3 R Knee inf -Ulcer Cleansing Rinsed/ Irrigated with Saline -Foul Odor after Cleansing No -Primary Dressing Applied Promogran Deborah Matter -Other Dressing drsg per dl materials inspector -Primary Dressing Covered/Secured with Dry Gauze, Secured with Tape -Promogran Deborah Matter 0 #2 R Knee Medial -Ulcer Cleansing Rinsed/ Irrigated with Saline -Foul Odor after Cleansing No -Primary Dressing Applied Nugauze, Iodoform 1/4in -Other Dressing abd -Primary Dressing Covered/Secured with Dry Gauze, Secured with Tape -Nugauze, Iodoform 1/4 1 -Wound Comment(s) drsg per dl materials inspector #1 R Knee -Ulcer Cleansing Rinsed/ Irrigated with Saline -Foul Odor after Cleansing No -Primary Dressing Applied Promogran Deobrah Matter -Primary Dressing Covered/Secured with Dry Gauze & Roll Gauze, Secured with Tape -Other Covering drsg per dl materials inspector -Promogran Deborah Matter 1 BLE -Tubular Bandage Single Layer -Size of Tubigrip Used Size F -Size F ($) 2 Pain Scale: 0-10 Numeric Is Patient Pain Free? Yes - Visit Discharge Discharge Condition Stable Ambulatory Status Ambulatory Transportation Private Auto Additional Wound Wound debrided: R knee medial Laterality: Right Type of Debridement: Excisional debridement Anesthesia Used: 4% Lidocaine Solution Depth: Down to and including healthy tissue Percentage of wound debrided: 100 Instrument Used: 7mm curette Tissue Removed: slough Severity: Fat Layer Exposed Amount of bleeding with debridement: None Patient tolerated procedure: Patient tolerated procedure well
--- NOTE | 2025-01-04 10:55 | WC ---
PHOTO 01/03/25 [facility]
== END 2025-01-16 23:59 | disposition home or self-care (01) ==
LOC: WC 13:07
PROVIDERS: PCP Family Medicine; Referring Provider Family Medicine; Visit Provider Physician Assistant
DX: L97.812 Non-pressure chronic ulcer of other part of right lower leg with fat layer exposed (principal); T81.31XA Disruption of external operation (surgical) wound, not elsewhere classified, initial encounter; T84.53XA Infection and inflammatory reaction due to internal right knee prosthesis, initial encounter; Y83.1 Surgical operation with implant of artificial internal device as the cause of abnormal reaction of the patient, or of later complication, without mention of misadventure at the time of the procedure; Z79.82 Long term (current) use of aspirin; Z79.899 Other long term (current) drug therapy; Z96.651 Presence of right artificial knee joint
CPT/HCPCS: 11042; 11045; 87070; 87075; 87077; 87205